=== PATIENT | male | born 1965 | race Caucasian/White ===

== ENCOUNTER 2016-08-14 07:30 | Emergency (ER) | payer OTHER ==
[~2016-08-14] VITALS: Ht 157.5 cm; Wt 81.0 kg
[~2016-08-14 07:30] MED LIST: AMLO-145 PO; CIPR500T4 PO; HYD25 PO; HYDR-906 PO; IBUP-1542 PO; METR500T PO; OMEP20CA16 PO
[2016-08-14 07:32] VITALS: Ht 157.5 cm; Wt 81.0 kg
[2016-08-14] MEDS ORDERED: HC1C30 TOP (07:58)
[2016-08-14] MEDS ORDERED: NIZ30CR2 TOP (07:58)
[2016-08-14] MEDS ORDERED: LORA-186 PO (07:58)
--- NOTE | 2016-08-14 11:27 | ERD ---
ER Documentation Chief Complaint Date/Time DATE: 08/14/16 TIME: 11:27 Chief Complaint lena eye lid swelling HPI This is a 51-year-old male presenting to the emergency department complaining of bilateral upper eyelid swelling that started a few days ago. Patient states that he got the swelling and then he applied penicillin and it then it started becoming erythematous with irritation rating it mild in sevrity, however patient said the swelling went down. Patient patient also complains of redness and itchiness to his right groin for the past week. Patient denies taking any other medications. Denies any medical problem ROS All systems reviewed and are negative except as per history of present illness. Medications Home Meds Active Scripts Loratadine* (Claritin*) 10 Mg Tablet, 10 MG PO DAILY, #30 TAB Prov:JOANN DIMAS PA-C 08/14/16 Hydrocortisone* Topical (Hydrocortisone* Topical) 1%-28.35 Gm Cream..g., 1 APPLIC TOP BID for 5 Days, TUB Prov:JOANN DIMAS PA-C 08/14/16 Ketoconazole* (Nizoral*) 2%-30 Gm Cream..g., 1 APPLIC TOP BID for 10 Days, TUB Prov:JOANN DIMAS PA-C 08/14/16 Ibuprofen* (Ibuprofen*) 600 Mg Tablet, 600 MG PO Q6, #20 TAB Prov:JANUSZ KINNEY 01/20/16 Hydrocodone/Acetaminophen ([place] 5-325 Tablet) 1 Each Tablet, 1 EACH PO Q6, #20 TAB Prov:JANUSZ KINNEY 01/20/16 Ciprofloxacin Hcl* (Ciprofloxacin Hcl*) 500 Mg Tablet, 500 MG PO BID for 7 Days , #14 TAB Prov:JANUSZ KINNEY 01/20/16 Metronidazole* (Flagyl*) 500 Mg Tablet, 500 MG PO TID for 7 Days, TAB Prov:JANUSZ KINNEY 01/20/16 Reported Medications Omeprazole* (Omeprazole*) 20 Mg Capsule.dr, 20 MG PO BID, #60 CAP 01/20/16 Amlodipine Besylate* (Amlodipine Besylate*) 5 Mg Tablet, 5 MG PO BID, #30 TAB 01/20/16 Hydrochlorothiazide* (Hydrochlorothiazide*) 25 Mg Tab, 25 MG PO DAILY, #30 TAB 01/20/16 Allergies Allergies: Coded Allergies: No Known Allergy (Unverified , 04/11/13) PMhx/Soc History of Surgery: No Anesthesia Reaction: No Hx Neurological Disorder: No Hx Respiratory Disorders: No Hx Cardiac Disorders: No Hx Psychiatric Problems: No Hx Miscellaneous Medical Probl: No Hx Alcohol Use: No Hx Substance Use: No Hx Tobacco Use: No Smoking Status: Never smoker Physical Exam Vitals Vital Signs Date Time Temp Pulse Resp B/P Pulse Ox O2 Delivery O2 Flow Rate FiO2 08/14/16 07:32 98.1 89 18 145/78 99 Physical Exam General: WD/WN, in no apparent distress, non-toxic appearing HENT: NC/AT Eyes: Conjunctiva normal. Extraocular muscles are intact, pupils equal reactive to light Neck: Supple Pulm: Clear to auscultation, normal labored breathing; no wheezing/rales/ rhonchi heard CV: Good capillary refill GI: Non-distended, no guarding Back: No masses Ext: No clubbing, cyanosis, or edema Neuro: Moves on all fours Skin: Mild erythema to bilateral eyelids Erythematous patch with central clearing To the right groinPsych: Normal mood Procedures/MDM This is a 51-year-old male presenting to the emergency room with symptoms and signs are most consistent with an allergic reaction to his eyelids and ringworm in his right groin. There was no evidence of cellulitis, anaphylaxis, extraocular muscle entrapment or conjunctivitis. Patient has stable vital signs he appears well. A prescription for hydrocortisone cream for his eyelids and ketoconazole for his ringworm in the right groin was provided. Patient is hematuria stable and neurovascular intact for discharge for home with strict precautions to return to emergency room for any worsening sinus symptoms. I discussed the follow-up with primary care physician. Patient understands and agrees with plan Departure Diagnosis: Primary Impression: Allergic reaction Additional Impression: Ringworm Condition: Stable Patient Instructions: First Aid: Allergic Reactions, Ringworm, Skin Additional Instructions: Visite a padmini garcia para un EXAMEN.Regrese a estas instalaciones si no se mejora jennifer esperbamos o jennifer le dijimos. Monette toda la medicina gale y jennifer se le indic. Regrese a estas instalaciones si no se mejora jennifer esperbamos o jennifer le dijimos. JOANN DIMAS PA-C Aug 14, 2016 11:27
== END 2016-08-14 08:09 | disposition home or self-care (01) ==
LOC: FTE 07:30
DX: H57.8 Other specified disorders of eye and adnexa (principal); B35.9 Dermatophytosis, unspecified
CPT/HCPCS: 99283

== ENCOUNTER 2016-09-01 14:53 | Emergency (ER) | payer OTHER ==
[~2016-09-01] VITALS: Wt 73.5 kg
[~2016-09-01 14:53] MED LIST changes: +HC1C30 TOP; +LORA-186 PO; +NIZ30CR2 TOP
[2016-09-01] MEDS ORDERED: SOD CHLORIDE 0.9% 1,000 ML IV STA (15:11)
[2016-09-01] MEDS ORDERED: HYDROCODONE/APAP (5/325) TAB PO ONE (15:30)
[2016-09-01 16:03] LABS: ADD UMIC YES; UR ASCORBIC ACID NEGATIVE (NEGATIVE); UR BILIRUBIN (Dip) NEGATIVE (NEGATIVE); UR BLOOD (Dip) 1+ mg/dL (NEGATIVE); UR CLARITY CLEAR (CLEAR); UR COLOR STRAW (YELLOW); UR GLUCOSE (Dip) NEGATIVE (NEGATIVE); UR KETONES (Dip) NEGATIVE (NEGATIVE); UR LEUKOCYTE ESTERASE (Dip) NEGATIVE Leu/ul (NEGATIVE); UR NITRITE (Dip) NEGATIVE (NEGATIVE); UR RBC 0 /HPF (0-5); UR SPECIFIC GRAVITY (Dip) 1.001 (1.003-1.030); UR TOTAL PROTEIN (Dip) NEGATIVE (NEGATIVE); UR UROBILINOGEN (Dip) NEGATIVE (NEGATIVE)
[2016-09-01 16:05] LABS: BASOPHIL # 0.1 10^3/ul (0.0-0.1); BASOPHILS % 1.1 % (0.0-2.0); EOSINOPHILS # 1.2 10^3/ul (0.0-0.5); EOSINOPHILS % 13.4 % (0.0-7.0); HEMATOCRIT 43.2 % (42.0-52.0); HEMOGLOBIN 15.5 g/dl (14.0-18.0); LYMPHOCYTES # 2.6 10^3/ul (0.8-2.9); LYMPHOCYTES % 29.8 % (15.0-51.0); MEAN CORPUSCULAR HGB CONC 35.9 g/dl (32.0-37.0); MEAN CORPUSCULAR VOLUME 86.4 fl (82.0-101.0); MEAN PLATELET VOLUME 11.5 fl (7.4-10.4); MONOCYTE # 0.8 10^3/ul (0.3-0.9); MONOCYTES % 9.3 % (0.0-11.0); NEUTROPHILS % 46.2 % (39.0-77.0); PLATELET COUNT 229 10^3/UL (140-415); RED CELL DISTRIBUTION WIDTH 12.1 % (11.5-14.5); WHITE BLOOD COUNT 8.8 10^3/ul (4.8-10.8)
[2016-09-01 16:06] LABS: ADD SCAN DIFF NO
[2016-09-01 16:17] LABS: ALBUMIN 4.9 g/dl (3.3-4.9); ALBUMIN/GLOBULIN RATIO 1.44; BILIRUBIN,INDIRECT 0.3 mg/dl (0-1.1); BILIRUBIN,TOTAL 0.3 mg/dl (0.2-1.3); CALCIUM 9.6 mg/dl (8.4-10.2); CREATININE 1.02 mg/dl (0.61-1.24); POTASSIUM 3.6 mmol/L (3.5-5.1); TOTAL PROTEIN 8.3 g/dl (6.1-8.1)
--- NOTE | 2016-09-01 16:17 | RADRPT ---
PROCEDURE: CT Abdomen and Pelvis without contrast. CLINICAL INDICATION: Abdominal pain. kidney stones. TECHNIQUE: CT scan of the abdomen and pelvis without contrast was performed. Coronal and sagittal reformatted images were obtained from the axial source images. Images were reviewed on a high-resolu tion PACS workstation. One or more the following does reduction techniques were utilized: Automated exposure control, adjustment of the mA/ or kV according to patient's size, or use of iterative recon struction technique. Total exam CTDIvol is 9.14 MGy DLP is 491.71 mGy-cm. COMPARISON: Abdomen pelvis CT 01/20/2016 FINDINGS: Evaluation of the abdominal and pelvic viscera is limited without oral and intravenous contrast. Abdomen: The visualized lung bases demonstrate no pleural effusion, pneumothorax or consolidation. The liver is normal in size and attenuation. There is no focal hepatic lesion. The gallbladder and bile ducts are normal. The spleen is normal in size. There is no focal splenic lesion. Both adrenals are normal with no enlargement or mass. The pancreas is unremarkable with no mass or evidence of pancreatitis. There is mild right hydronephrosis and hydroureter with 2 small stones within the bladder near the u reterovesical junction which are compatible with recently passed stones. There is 1.1 cm round hyperdensity in the left kidney which likely represent a hyperdense cyst. Also several bilateral renal cysts are noted. There are several small 1-2 mm renal calculi are noted. Th ere is no left hydronephrosis. The abdominal aorta is not dilated. There is no retroperitoneal lymphadenopathy or mass. Diverticulosis of the sigmoid colon without evidence of acute diverticulitis. There is no free fluid or free gas. Pelvis: There is no pelvic lymphadenopathy or mass. The bladder and distal ureters are normal. The periappendiceal region is unremarkable with no evidence of appendicitis. The bowel and mesentery are normal. There is no free fluid or free gas. Osseous structures: There are multilevel mild degenerative changes of visualized thoracolumbar spine with decreased disk spaces and osteophytosis most pronounced at L5-S1. IMPRESSION: 1. Mild right hydroureteronephrosis with 2 small recently passed stones within the bladder. Several small 1-2 mm renal calculi. 2. A 1.1 cm round hyperdensity in the left kidney which likely represent a hyperdense cyst. Several bilateral renal cysts. 3. Sigmoid diverticulosis without evidence of acute diverticulitis. 4. No mass, lymphadenopathy, or focal acute inflammatory process is identified. RPTAT: QQ .Baylee Leach MD, MD Date Time Electronically viewed and signed by .Baylee Leach MD, MD on 09/01/2016 16:17 .N/
[2016-09-01] MEDS ORDERED: KETOROLAC 30 MG INJ IV STA (16:26)
--- NOTE | 2016-09-01 16:27 | ERD ---
ER Documentation Chief Complaint Date/Time DATE: 09/01/16 TIME: 16:24 Chief Complaint PAIN WITH URINATION, HX OF KIDNEY STONE HPI This is a 51-year-old male who presents to the emergency room for evaluation of painful urination. The patient does state he has a history kidney stones. He states that his primary care physician gave him an antibiotic, and Pyridium for pain with urination. He denies any fevers or chills associated with this painful urination and denies any penile discharge. He came to the emergency room for evaluation. The patient localizes the pain to the lower portion of the abdomen ROS All systems reviewed and are negative except as per history of present illness. Medications Home Meds Active Scripts Loratadine* (Claritin*) 10 Mg Tablet, 10 MG PO DAILY, #30 TAB Prov:JOANN DIMAS PA-C 08/14/16 Hydrocortisone* Topical (Hydrocortisone* Topical) 1%-28.35 Gm Cream..g., 1 APPLIC TOP BID for 5 Days, TUB Prov:JOANN DIMAS PA-C 08/14/16 Ketoconazole* (Nizoral*) 2%-30 Gm Cream..g., 1 APPLIC TOP BID for 10 Days, TUB Prov:JOANN DIMAS PA-C 08/14/16 Ibuprofen* (Ibuprofen*) 600 Mg Tablet, 600 MG PO Q6, #20 TAB Prov:JANUSZ KINNEY 01/20/16 Hydrocodone/Acetaminophen ([place]illi[place] 5-325 Tablet) 1 Each Tablet, 1 EACH PO Q6, #20 TAB Prov:JANUSZ KINNEY 01/20/16 Ciprofloxacin Hcl* (Ciprofloxacin Hcl*) 500 Mg Tablet, 500 MG PO BID for 7 Days , #14 TAB Prov:JANUSZ KINNEY 01/20/16 Metronidazole* (Flagyl*) 500 Mg Tablet, 500 MG PO TID for 7 Days, TAB Prov:JANUSZ KINNEY 01/20/16 Reported Medications Omeprazole* (Omeprazole*) 20 Mg Capsule.dr, 20 MG PO BID, #60 CAP 01/20/16 Amlodipine Besylate* (Amlodipine Besylate*) 5 Mg Tablet, 5 MG PO BID, #30 TAB 01/20/16 Hydrochlorothiazide* (Hydrochlorothiazide*) 25 Mg Tab, 25 MG PO DAILY, #30 TAB 01/20/16 Allergies Allergies: Coded Allergies: No Known Allergy (Unverified , 04/11/13) PMhx/Soc History of Surgery: No Anesthesia Reaction: No Hx Neurological Disorder: No Hx Respiratory Disorders: No Hx Cardiac Disorders: No Hx Psychiatric Problems: No Hx Miscellaneous Medical Probl: No Hx Alcohol Use: No Hx Substance Use: No Hx Tobacco Use: No Physical Exam Vitals Vital Signs Date Time Temp Pulse Resp B/P Pulse Ox O2 Delivery O2 Flow Rate FiO2 09/01/16 14:55 98.4 102 17 176/104 97 Physical Exam INITIAL VITAL SIGNS: Reviewed by me GENERAL: The patient is well developed and appropriate for usual state of health in no apparent distress HEENT: Pupils equal, round, and reactive to light. EOMI. There is no scleral icterus. NECK: C-spine is soft and supple, there is no meningismus. There is no cervical lymphadenopathy. LUNGS: Clear to auscultation bilaterally. There are no rales, wheezes or rhonchi. HEART: Regular rate and rhythm, no murmurs, clicks, rubs or gallops. ABDOMEN: Suprapubic tenderness to palpation, otherwise soft, non-tender, non- distended. There are bowel sounds in all four quadrants. No rebound or guarding. EXTREMITIES: There is no peripheral cyanosis or edema. No focal swelling or erythema. NEUROLOGICAL: The patient moves all four extremities with 5/5 strength. Cranial nerves II - XII are intact. Normal gait. Alert and oriented SKIN: There is no apparent rash or petechiae. HEME/LYMPHATIC: There is no evidence of excessive bruising or lymphedema. PSYCHIATRIC: The patient does not appear anxious or depressed. Result Diagram: 09/01/16 1553 09/01/16 1553 Results 24 hrs Laboratory Tests Test 09/01/16 15:25 09/01/16 15:53 Urine Color STRAW Urine Clarity CLEAR Urine pH 7.0 Urine Specific [place] 1.001 Urine Ketones NEGATIVEmg/dL Urine Nitrite NEGATIVEmg/dL Urine Bilirubin NEGATIVEmg/dL Urine Urobilinogen NEGATIVEmg/dL Urine Leukocyte Esterase NEGATIVELeu/ul Urine Microscopic RBC 0/HPF Urine Microscopic WBC 0/HPF Urine Hemoglobin 1+mg/dL Urine Glucose NEGATIVEmg/dL Urine Total Protein NEGATIVEmg/dl White Blood Count 8.810^3/ul Red Blood Count 5.0010^6/ul Hemoglobin 15.5g/dl Hematocrit 43.2% Mean Corpuscular Volume 86.4fl Mean Corpuscular Hemoglobin 31.0pg Mean Corpuscular Hemoglobin Concent 35.9g/dl Red Cell Distribution Width 12.1% Platelet Count 87698^3/UL Mean Platelet Volume 11.5fl Neutrophils % 46.2% Lymphocytes % 29.8% Monocytes % 9.3% Eosinophils % 13.4% Basophils % 1.1% Nucleated Red Blood Cells % 0.0/100WBC Neutrophils # 4.010^3/ul Lymphocytes # 2.610^3/ul Monocytes # 0.810^3/ul Eosinophils # 1.210^3/ul Basophils # 0.110^3/ul Nucleated Red Blood Cells # 0.010^3/ul Sodium Level 144mmol/L Potassium Level 3.6mmol/L Chloride Level 101mmol/L Carbon Dioxide Level 25mmol/L Anion Gap 22 Blood Urea Nitrogen 14mg/dl Creatinine 1.02mg/dl Glucose Level 96mg/dl Calcium Level 9.6mg/dl Total Bilirubin 0.3mg/dl Direct Bilirubin 0.00mg/dl Indirect Bilirubin 0.3mg/dl Aspartate Amino Transf (AST/SGOT) 37IU/L Alanine Aminotransferase (ALT/SGPT) 39IU/L Alkaline Phosphatase 143IU/L Total Protein 8.3g/dl Albumin 4.9g/dl Globulin 3.40g/dl Albumin/Globulin Ratio 1.44 Lipase 139U/L Current Medications Medications (Trade) Dose Ordered Sig/Milady Route PRN Reason Start Time Stop Time Status Last Admin Dose Admin Acetaminophen/ Hydrocodone Bitart 1 tab 1 tab ONCE ONCE PO 09/01/16 15:30 09/01/16 15:31 DC 09/01/16 15:53 Sodium Chloride (NS) 1,000 ml @ 1,000 mls/hr Q1H STAT IV 09/01/16 15:11 09/01/16 16:10 DC 09/01/16 15:53 Procedures/MDM CT abdomen pelvis without: . Mild right hydroureteronephrosis with 2 small recently passed stones within the bladder. Several small 1-2 mm renal calculi. 2. A 1.1 cm round hyperdensity in the left kidney which likely represent a hyperdense cyst. Several bilateral renal cysts. 3. Sigmoid diverticulosis without evidence of acute diverticulitis. 4. No mass, lymphadenopathy, or focal acute inflammatory process is identified. This 41-year-old male presents to the emergency room for evaluation of abdominal pain. The patient does have a history of kidney stones and was placed on ciprofloxacin and Pyridium for painful urination. My examination the patient had some suprapubic tenderness to palpation. Lab work was obtained which does not reveal any increase in his creatinine or leukocytosis or infection in urine. CT of the abdomen pelvis was obtained which did reveal 2 small renal calculi in the bladder which are recently Plast. The patient was given Gilliam and Toradol in the emergency room and will be discharged home at this time with a prescription for Gilliam and outpatient urology follow-up. Differential diagnoses entertained was broad with potential high acuity. Patient has been evaluated for appendicitis, cholecystitis, and other high risk medical and surgical causes of abdominal pain. Ultimately the patient's evaluation is nondiagnostic. Based on the patient's lack of risk factors, as well as the patient's clinical, laboratory, and imaging data, the patient appears to be low risk for these high risk causes of abdominal pain. Departure Diagnosis: Primary Impression: Kidney stones Additional Impression: Dysuria Condition: Stable GEO HERNANDEZ DO Sep 01, 2016 16:27
[2016-09-01] MEDS ORDERED: HYDR-906 PO (16:28)
== END 2016-09-01 16:52 | disposition home or self-care (01) ==
LOC: FTE 14:53
DX: N20.0 Calculus of kidney (principal)
CPT/HCPCS: 36415; 74176; 80053; 81001; 83690; 85025; 96374; 99285; J1885; J7030

== ENCOUNTER 2016-09-24 21:01 | Emergency (ER) | payer OTHER ==
[~2016-09-24] VITALS: Ht 167.6 cm; Wt 72.0 kg
[2016-09-24 21:30] VITALS: Ht 167.6 cm; Wt 72.0 kg
[2016-09-24] MEDS ORDERED: KETOROLAC 60 MG INJ IM STA (22:25)
--- NOTE | 2016-09-24 22:27 | ERD ---
ER Documentation Chief Complaint Date/Time DATE: 09/24/16 TIME: 22:25 Chief Complaint lower back pain radiating to to leg since earlier today HPI Patient is a 51-year-old male who presents with lower back pain radiating down his right lower extremity that he has since earlier today. He denies any trauma. He is ambulatory. Denies any numbness or tingling. Denies any bowel or bladder incontinence. Denies any saddle anesthesia. Denies any dysuria, hematuria, flank pain, or increased urinary frequency. Denies any fever. He has not taken any medication for this. Pain is 8 out of 10 throbbing radiating on the right lower extremity. ROS All systems reviewed and are negative except as per history of present illness. Medications Home Meds Active Scripts Hydrocodone/Acetaminophen ([place] 5-325 Tablet) 1 Each Tablet, 1 TAB PO Q6H Y for PAIN, #15 TAB Prov:GEO HERNANDEZ DO 09/01/16 Loratadine* (Claritin*) 10 Mg Tablet, 10 MG PO DAILY, #30 TAB Prov:JOANN DIMAS PA-C 08/14/16 Hydrocortisone* Topical (Hydrocortisone* Topical) 1%-28.35 Gm Cream..g., 1 APPLIC TOP BID for 5 Days, TUB Prov:JOANN DIMAS PA-C 08/14/16 Ketoconazole* (Nizoral*) 2%-30 Gm Cream..g., 1 APPLIC TOP BID for 10 Days, TUB Prov:JOANN DIMAS PA-C 08/14/16 Ibuprofen* (Ibuprofen*) 600 Mg Tablet, 600 MG PO Q6, #20 TAB Prov:JANUSZ KINNEY 01/20/16 Hydrocodone/Acetaminophen ([place] 5-325 Tablet) 1 Each Tablet, 1 EACH PO Q6, #20 TAB Prov:JANUSZ KINNEY 01/20/16 Ciprofloxacin Hcl* (Ciprofloxacin Hcl*) 500 Mg Tablet, 500 MG PO BID for 7 Days , #14 TAB Prov:JANUSZ KINNEY 01/20/16 Metronidazole* (Flagyl*) 500 Mg Tablet, 500 MG PO TID for 7 Days, TAB Prov:JANUSZ KINNEY 01/20/16 Reported Medications Omeprazole* (Omeprazole*) 20 Mg Capsule., 20 MG PO BID, #60 CAP 01/20/16 Amlodipine Besylate* (Amlodipine Besylate*) 5 Mg Tablet, 5 MG PO BID, #30 TAB 01/20/16 Hydrochlorothiazide* (Hydrochlorothiazide*) 25 Mg Tab, 25 MG PO DAILY, #30 TAB 01/20/16 Allergies Allergies: Coded Allergies: No Known Allergy (Unverified , 04/11/13) PMhx/Soc Medical and Surgical Hx: pt denies Medical Hx History of Surgery: No Anesthesia Reaction: No Hx Neurological Disorder: No Hx Respiratory Disorders: No Hx Cardiac Disorders: No Hx Psychiatric Problems: No Hx Miscellaneous Medical Probl: No Hx Alcohol Use: No Hx Substance Use: No Hx Tobacco Use: No FmHx Family History: No diabetes Physical Exam Vitals Vital Signs Date Time Temp Pulse Resp B/P Pulse Ox O2 Delivery O2 Flow Rate FiO2 09/24/16 21:30 97.8 80 18 135/78 98 Physical Exam General: well developed, well nourished, alert, nontoxic, no distress Head: normocephalic, atraumatic Neck: Supple, nontender, no lymphadenopathy, no midline tenderness Respiratory: Clear to auscaultation bilaterally, speaks in full sentences, no use of accesory muscles or labored breathing, no rales, ronchi, or wheezing Cardiovascular: RRR, No murmurs GI: soft, non tender, non distended, negative murphys sign, negative mcburneys point tenderness, no cva tenderness bilaterally, no rebound or guarding Back: no midline tenderness, no step offs or bony abnormalities, sensation to light touch in tact Extremities: moving all extremities normally, normal gait, no edema Procedures/MDM 50-year-old male has lower back pain radiating on his right lower extremity consistent with sciatica. He was given a Toradol injection and [place] here in the emergency room he was discharged with ibuprofen, [place], and Flexeril. Recommended this patient follow up with her primary care doctor within 48 hours or return to the emergency room for any worsening of symptoms. However this time I do believe there is suitable for outpatient management. I answered all their questions and they agreed with the plan and were discharged home. Departure Diagnosis: Primary Impression: Back pain Condition: Stable SERAFIN HOWARD PA-C Sep 24, 2016 22:27
[2016-09-24] MEDS ORDERED: HYDR-906 PO (22:28)
[2016-09-24] MEDS ORDERED: IBUP-1542 PO (22:28)
[2016-09-24] MEDS ORDERED: CYCL-319 PO (22:28)
[2016-09-24] MEDS ORDERED: HYDROCODONE/APAP (5/325) TAB PO ONE (22:30)
== END 2016-09-24 23:01 | disposition home or self-care (01) ==
LOC: FTE 21:01
DX: M54.5 Low back pain (principal)
CPT/HCPCS: 96372; 99284; J1885